=== PATIENT | female | born 1970 | race Caucasian/White ===

== ENCOUNTER 2022-03-17 22:52 | Emergency (ER) | payer OTHER ==
[2022-03-18 02:07] LABS: INFLUENZA A NAA NEGATIVE (NEGATIVE)
[2022-03-18 02:09] LABS: CORONAVIRUS 2019 SARS-COV-2 POSITIVE (NEGATIVE)
== END 2022-03-18 02:15 | disposition home or self-care (01) ==
LOC: FER 22:52
PROVIDERS: Emergency Medicine
DX: U07.1 COVID-19 (principal); J45.909 Unspecified asthma, uncomplicated; Z79.51 Long term (current) use of inhaled steroids
CPT/HCPCS: 99283; U0002

== ENCOUNTER 2022-06-17 15:48 | Emergency (ER) | payer OTHER ==
[2022-06-17 16:57] LABS: BASOPHIL 0.3 % (0-2); EOSINOPHIL 1.7 % (0-5); HCT 41.9 % (37.0-47.0); HGB 13.4 g/dl (12.5-16.0); LYMPHOCYTE 20.5 % (15-48); MCH 28.6 pg (25.0-31.0); MCV 89.3 fL (78.0-100.0); MONOCYTE 5.4 % (0-12); MPV 10.6 fL (6.0-9.5); NEUTROPHIL 71.8 % (41-80); NRBC 0; PLT 376 K/uL (150-400); RBC 4.69 M/uL (4.20-5.40); RDW 14.4 % (11.5-14.0); WBC 10.1 K/uL (4.0-10.5)
[2022-06-17 17:18] LABS: BILIRUBIN NEGATIVE (NEGATIVE); BLOOD 1+ Ery/uL (NEGATIVE); CLARITY CLEAR (CLEAR); COLOR YELLOW (YELLOW); GLUCOSE (U) NORMAL (NORMAL); LEUKOCYTES NEGATIVE Leu/uL (NEGATIVE); NITRITE NEGATIVE (NEGATIVE); PROTEIN NEGATIVE (NEGATIVE); SPECIFIC GRAVITY 1.015 (1.001-1.030); UROBILINOGEN 0.2 mg/dL (0.2-1.0); pH 5.5 (5.0-9.0)
[2022-06-17 17:28] LABS: ALBUMIN 3.9 g/dL (3.4-5.0); BILIRUBIN - TOTAL 0.4 mg/dL (0.2-1.0); BUN/CREAT RATIO (CALC) 22.4 RATIO; CREATININE 0.67 mg/dL (0.51-0.95); GLOBULIN (CALCULATION) 3.7 g/dL; POTASSIUM 3.5 mmol/L (3.5-5.1); TOTAL PROTEIN 7.6 g/dL (6.4-8.2)
[2022-06-17 17:34] LABS: URINARY RBC RARE
[2022-06-17] MEDS ORDERED: BENTYL10 MG PO (18:57)
[2022-06-17] MEDS ORDERED: ONDANSETRON HCL4 MG PO (18:57)
== END 2022-06-17 19:36 | disposition home or self-care (01) ==
LOC: FER 15:48
PROVIDERS: Nurse Practitioner Family
DX: M54.50 Low back pain, unspecified (principal); R10.10 Upper abdominal pain, unspecified; J45.909 Unspecified asthma, uncomplicated; K21.9 Gastro-esophageal reflux disease without esophagitis; Z79.899 Other long term (current) drug therapy
CPT/HCPCS: 36415; 80053; 81001; 85025; 96372; J1885; J2405; J7030; Q9967